=== PATIENT | male | born 1960 | race Caucasian/White ===

== ENCOUNTER 2016-03-24 00:01 | Outpatient (POV) ==
[2015-06-21 03:00] VITALS: BMI 43.2
== END 2016-03-24 00:02 ==
LOC: OUTPT 00:01
PROVIDERS: ATTEND Otolaryngology
DX: H91.90 Unspecified hearing loss, unspecified ear (principal)
CPT/HCPCS: 92557; 92567

== ENCOUNTER 2016-06-01 13:51 | Outpatient (CLI) ==
[2015-06-21 03:00] VITALS: BMI 43.2
--- NOTE | 2016-06-01 15:25 | DI ---
Exam: Right hip two views History: Right hip pain Findings: AP and frog lateral views of the right hip were obtained and demonstrates degenerative sp urring and soft tissue calcifications in relationship to the superior lateral right acetabular rim. There is also degenerative spurring and soft tissue calcifications in relationship to the greater t rochanter. No evidence of fracture, dislocation nor evidence of hip joint space narrowing noted. IMPRESSION: Arthritic changes in relationship to the acetabular rim and right greater trochanter wi thout evidence of fracture nor disruption of the right hip joint space and articulation.
--- NOTE | 2016-06-01 15:27 | DI ---
Exam: Lumbar spine three-view AP and lateral study History: Pain Findings: Full length AP and lateral views of the lumbar spine were obtained as well as a spot late ral view of the lumbosacral angle. There appear to be five non-rib bearing, non sacralized lumbar v ertebrae. Heights of the lumbar vertebrae and associated disc spaces appear to be relatively intact . There is a mild degree of multilevel endplate spurring noted throughout the bulk of the lumbar sp ine. Impression: Very mild degree of multilevel endplate spurring. No evidence of fracture, malalignmen t nor significant lumbar spine compression deformity in this patient with five functioning, non-rib bearing, non sacralized lumbar vertebrae.
== END 2016-06-01 13:52 | disposition home or self-care (01) ==
LOC: RAD 13:51
PROVIDERS: ATTEND Internal Medicine
DX: M25.551 Pain in right hip (principal); M54.9 Dorsalgia, unspecified

== ENCOUNTER 2016-06-11 10:01 | Outpatient (CLI) ==
[2015-06-21 03:00] VITALS: BMI 43.2
--- NOTE | 2016-06-11 11:07 | CT ---
EXAM: CT of the right lower extremity without contrast History: Right hip pain. Comparison: Right hip radiograph 06/01/2016 Technique: Multiplanar CT images through the right hip were obtained without the administration of IV contrast Findings: No acute fracture or dislocation. Mild enthesiopathy of the greater trochanter. Mild narrowing of the right hip joint. Increased acetabular coverage of the right femoral head. Osseous density seen involving the superior acetabular rim may be related to old trauma or accessory ossicle. Impression: 1. No acute osseous abnormality. 2. Mild arthritis of the right hip joint. 3. Increased acetabular coverage of the right femoral head can predispose to femoral acetabular imp ingement syndrome. If symptoms persist, recommend further evaluation with MRI.
--- NOTE | 2016-06-11 11:24 | CT ---
EXAM: CT of the lumbar spine without contrast History: Lower back pain. Comparison: Lumbar spine radiograph 06/01/2016 Technique: Multiplanar CT images through the lumbar spine were obtained without the administration of IV contrast Findings: Mild atherosclerotic vascular calcifications of the visualized abdominal aorta. No acute fracture or subluxation. Mild multilevel degenerative disc space narrowing with a few smal l anterior osteophytes. T12-L1: A small posterior disc osteophyte complex with no significant bony central canal stenosis an d no bony neural foraminal narrowing. L1-L2: No significant disc bulge, central canal stenosis or bony neural foraminal narrowing. L2-L3: No significant disc bulge, central canal stenosis or bony neural foraminal narrowing. L3-L4: No significant disc bulge or central canal stenosis. Moderate left and mild to moderate rig ht bony neural foraminal narrowing secondary to ligamentous and facet perching. L4-L5: Small disc bulge effacing the anterior thecal sac but no significant bony central canal sten osis. Moderate left and mild to moderate right bony neural foraminal narrowing secondary to ligament ous and facet hypertrophy. L5, S1: No significant disc bulge or central canal stenosis. Mild to moderate bilateral bony neural foraminal narrowing secondary to ligamentous and facet hypertrophy. Impression: 1. No acute osseous abnormality of the lumbar spine. 2. Level by level analysis as detailed above.
== END 2016-06-11 10:02 | disposition home or self-care (01) ==
LOC: RAD 10:01
PROVIDERS: ATTEND Internal Medicine
DX: M25.551 Pain in right hip (principal); M54.5 Low back pain

== ENCOUNTER 2017-04-14 07:44 | Outpatient (CLI) ==
[2015-06-21 03:00] VITALS: BMI 43.2
== END 2017-04-14 07:45 | disposition home or self-care (01) ==
LOC: LAB 07:44
PROVIDERS: ATTEND Internal Medicine Endocrinology, Diabetes & Metabolism
DX: E88.81 Metabolic syndrome and other insulin resistance (principal)
CPT/HCPCS: 36415; 82533

== ENCOUNTER 2017-10-27 06:40 | Outpatient (CLI) ==
[2015-06-21 03:00] VITALS: BMI 43.2
--- NOTE | 2017-10-28 08:56 | ECHOCOLOR ---
Date of Exam: 10/27/17 Ordering Physician: DR. MEGAN GARCIA Reason for Echo: SOB, CAD WITH STENT, MORBID OBESITY M-Mode Normal Adult Results LV Dimensions Normal Adult Results AoV Opening excursions >1.6 >1.6 LVEDD-base- 3.5-5.8 6.1 Ao root dimensions 2.0-3.7 4.1 LVESD-base- 3.1-4.6 L. Atrium dimensions 1.9-3.8 4.8 Post. Wall thickness 0.8-1.1 1.2 IV septum (thickness) 0.7-1.2 1.5 Post. Wall excursion 0.72-1.3 NORMAL Septal motion 0.5 Systolic motion R. Ventricular cavity 1.5-2.0 NORMAL LVEF 60% 57% Paradoxical septal wall motion NORMAL 2-D: DILATED LEFT ATRIAL AND LEFT VENTRICLE CAVITIES--NORMAL VALVES--NO EFFUSION , NO THROMBUS, HYPOKINETIC SEPTUM M-MODE: MV: NORMAL AV: NORMAL TV: NORMAL PV: CHAMBER SIZE: ENLARGED LEFT ATRIAL AND LEFT VENTRICLE CAVITIES WALL MOTION: HYPOKINETIC SEPTUM PERICARDIUM: NORMAL INTERPRETATION: 1. LEFT VENTRICULAR HYPERTROPHY WITH ENLARGED LEFT ATRIAL CAVITY (4.8 CM) 2. HYPOKINETIC SEPTAL WALL 3. LEFT VENTRICULAR EJECTION FRACTION 57% 4. DILATED TO AORTIC ROOT MTDD
== END 2017-10-27 06:41 | disposition home or self-care (01) ==
LOC: CAR 06:40
PROVIDERS: ATTEND Internal Medicine
DX: R06.02 Shortness of breath (principal); I25.10 Atherosclerotic heart disease of native coronary artery without angina pectoris

== ENCOUNTER 2017-10-28 06:46 | Outpatient (CLI) ==
[2015-06-21 03:00] VITALS: BMI 43.2
[2017-10-28] MEDS ORDERED: DOBUTAMINE 250 ML IV ONE (07:08)
[2017-10-28] MEDS ORDERED: ATROPINE SULFATE PFS ONE (07:09)
== END 2017-10-28 06:47 | disposition home or self-care (01) ==
LOC: CAR 06:46
PROVIDERS: ATTEND Internal Medicine
DX: R06.02 Shortness of breath (principal); I25.10 Atherosclerotic heart disease of native coronary artery without angina pectoris; Z95.5 Presence of coronary angioplasty implant and graft

== ENCOUNTER 2020-09-23 21:30 | Observation (INO) ==
[2020-09-23 22:10] LABS: BASOPHILS # (AUTO) 0.1 K/uL (0-0.2); BASOPHILS % (AUTO) 0.8 % (0.0-3.0); EOSINOPHILS # (AUTO) 0.4 K/ul (0.0-0.7); EOSINOPHILS % (AUTO) 3.9 % (0.0-7.0); HEMATOCRIT 46.6 % (42.0-52.0); HEMOGLOBIN 15.5 g/dl (14.0-18.0); IMMATURE GRANULOCYTE % (AUTO) 0.2 % (0.0-5.0); LYMPHOCYTES # (AUTO) 2.4 K/uL (0.60-3.4); LYMPHOCYTES % (AUTO) 26.1 (10.0-50.0); MEAN CORPUSCULAR HEMOGLOBIN 27.3 pg (27.0-31.0); MEAN CORPUSCULAR HGB CONC 33.3 (31.8-35.4); MEAN CORPUSCULAR VOLUME 82.2 fl (80.0-94.0); MONOCYTES # (AUTO) 0.6 K/uL (0.4-2.0); MONOCYTES % (AUTO) 6.3 (0-10); NEUTROPHILS # (AUTO) 5.8 K/ul (2.0-6.9); NEUTROPHILS % (AUTO) 62.7 % (42.2-75.2); PLATELET COUNT 246 10^3/uL (140-440); RDW COEFFICIENT OF VARIATION 14.7 % (11.6-14.8); RED BLOOD COUNT 5.67 10^6/ul (4.70-6.10); WHITE BLOOD COUNT 9.21 K/ul (4.2-10.2)
--- NOTE | 2020-09-23 22:18 | DI ---
Exam: Two-view chest x-ray. Date: 09/23/2020. Comparison: None. HISTORY: Double vision. FINDINGS: Change of a sternotomy are present. The lungs are clear. There is mild elevation of the right hemidiaphragm. The cardiac silhouette and pulmonary vasculature are are normal. Impression: No acute intrathoracic findings. Sternotomy.
--- NOTE | 2020-09-23 22:44 | ED.PDOC ---
General ED Provider: Dr. SUMANTH CARRIZALES-ER Chief Complaint: Dizziness Stated Complaint: i have had double vision for several days Time Seen by Provider: 09/23/20 22:45 Mode of Arrival: Walk-In Information Source: Patient Primary Care Provider: MEGAN GARCIA Nursing and Triage Documentation Reviewed and Agree: Yes Does patient meet sepsis criteria?: No System Inflammatory Response Syndrome: Not Applicable Sepsis Protocol: For patient's 13 years and over: Temp is 96.8 and below OR 101 and greater Pulse >90 BPM Resp >20/minute Acutely Altered Mental Status Are patient's symptoms suggestive of a new infection, such as: -Pneumonia -Skin, Soft Tissue -Endocarditis -UTI -Bone, Joint Infection -Implantable Device -Acute Abdominal Infection -Wound Infection -Meningitis -Blood Stream Catheter Infection -Unknown Neurological Complaint Exam Neurological Deficit Complaint/Exam Patient Complains of: Reports Abnormal sensation Symptom Onset Unknown: No Onset: Gradual Symptoms Are: Still present Timing: Intermittent Initial Severity: Mild Current Severity: Moderate Location: Reports Generalized Character: Denies Numbness, Tingling, Paresthesia, Motor weakness, Paralysis, Sensory loss and Impaired speech Aggravating: Denies None, Fatigue, Stress, Hypertension and Exertion Alleviating: Denies None, Rest, OTC Meds, Heat and Ice Associated Signs and Symptoms: Denies Confusion, Agitation, Responsiveness, LOC, Headache, Fever, Nuchal rigidity, Recent trauma, Remote trauma and Recent il lness Related History: Denies Similar episode and Anticoagulant therapy CVA Risk Factors: Reports Diabetes SDH Risk Factors: Reports Male Carotid Bruit Present: No Glascow Coma Scale (see protocol): 15 Meningeal Signs Positive: No Focal Weakness: Present None Focal Sensory Loss: Present None Gait: Normal Nystagmus Present: No Gag Reflex Present: Yes Romberg Test Positive: No Babinski Sign: Negative Right and Negative Left Heel to Toe Normal: No Signs of Trauma: No IV t-PA Prescribed: No Differential Diagnoses: CVA Quality Indicator For Non-Traumatic Chest Pain/Syncope: EKG Performed Review of Systems Review Of Systems Constitutional: Reports No symptoms Eyes: Reports No symptoms Ears, Nose, Mouth, Throat: Reports No symptoms Respiratory: Reports No symptoms Cardiac: Reports No symptoms GI: Reports No symptoms : Reports No symptoms Musculoskeletal: Reports No symptoms Skin: Reports No symptoms Neurological: Reports Numbness Endocrine: Reports No symptoms Hematologic/Lymphatic: Reports No symptoms All Other Systems: Reviewed and Negative Physical Exam Physical Exam Appearance: Reports Well-appearing Ill-appearing: Not Applicable Pain Distress: Not Applicable Eyes: Reports LEON, EOMI and Conjunctiva clear ENT: Reports Ears normal Neck: Supple Respiratory: Reports Airway patent, Breath sounds clear and Breath sounds equal Cardiovascular: Reports RRR, Pulses normal, No rub and No murmur GI/: Reports Soft, Nontender, No masses, Bowel sounds normal and No Organomeg rere Musculoskeletal: Reports Normal strength, ROM intact, No edema and No calf tenderness Skin: Reports Warm, Dry and Normal color Neurological: Reports Sensation intact, Motor intact, Reflexes intact, Cranial nerves intact, Alert and Oriented Psychiatric: Reports Affect appropriate and Mood appropriate Critical Care Note Critical Care Note Total Critical Care Time (mins): 0 Course Course Hematology/Chemistry: 09/23/20 22:04 09/23/20 22:04 Orders, Labs, Meds: Lab Review 09/23/20 09/23/20 22:04 22:04 WBC 9.21 RBC 5.67 Hgb 15.5 Hct 46.6 MCV 82.2 MCH 27.3 MCHC 33.3 RDW Coeff of Chey 14.7 Plt Count 246 Immature Gran % (Auto) 0.2 Neut % (Auto) 62.7 Lymph % (Auto) 26.1 Dickinson % (Auto) 6.3 Eos % (Auto) 3.9 Baso % (Auto) 0.8 Neut # (Auto) 5.8 Lymph # (Auto) 2.4 Dickinson # (Auto) 0.6 Eos # (Auto) 0.4 Baso # (Auto) 0.1 Immature Gran # (Auto) 0.0 ESR 2 Sodium 137.0 Potassium 4.50 Chloride 102.0 Carbon Dioxide 20.0 L Anion Gap 19.50 BUN 26.0 H Creatinine 1.20 H Estimated GFR (MDRD) 62.00 BUN/Creatinine Ratio 21.66 Glucose 165.0 H Calcium 8.90 Total Bilirubin 0.40 AST 32.0 ALT 34.0 Alkaline Phosphatase 82.0 Total Creatine Kinase 80.0 Troponin I Pending Total Protein 7.50 Albumin 4.30 Globulin 3.20 Albumin/Globulin Ratio 1.34 Orders Category Date Time Status EKG-(ED ONLY) Stat CARDIO 09/23/20 21:47 Completed ED CATERING COORDINATOR APPLIED .ONCE EMERGENCY 09/23/20 21:47 Active ED IV/MEDIPORT/POWERPORT .ONCE EMERGENCY 09/23/20 21:47 Active CBC W/ AUTO DIFF Stat LAB 09/23/20 22:04 Completed COMPREHENSIVE METABOLIC PANEL Stat LAB 09/23/20 22:04 Results CREATINE KINASE Stat LAB 09/23/20 22:04 Results ESR Stat LAB 09/23/20 22:04 Completed HEMOGLOBIN A1C Stat LAB 09/23/20 22:04 Received TROPONIN I Stat LAB 09/23/20 22:04 Results 0.9 % Sodium Chloride [Saline Flush] MEDS 09/23/20 21:47 Active 1 syr IVF PRN PRN CHEST, 2 VIEWS PA & LAT Stat RADS 09/23/20 21:48 Completed Medications Generic Name Dose Route Start Last Admin Trade Name Freq PRN Reason Stop Dose Admin Sodium Chloride 1 syr 09/23/20 21:47 0.9% Sodium Chloride 10 Ml Disp.Syrin IVF PRN PRN To flush IV Vital Signs: Temp Pulse Resp BP Pulse Ox 09/23/20 21:32 98.1 F 100 H 20 148/89 H 94 L Discharge Plan Discharge Patient Disposition: PLACED OBSERVATION Discharge Problem: Diplopia Prescriptions: No Action atorvastatin [Lipitor] 20 MG tablet 20 mg PO QPM RF: 0 diltiazem HCl 180 MG capsule,extended release 24hr 180 mg PO DAILY RF: 0 magnesium oxide 400 MG tablet 400 mg PO DAILY RF: 0 metformin [Glucophage] 1,000 MG tablet 1,000 mg PO BID RF: 0 lisinopril [Zestril] 5 MG tablet 5 mg PO DAILY RF: 0 multivitamin 1 CAP capsule 1 cap PO DAILY RF: 0 pantoprazole 40 mg Tablet,Delayed Release (Dr/Ec) 40 mg PO DAILY RF: 0 tamsulosin 0.4 mg Capsule 0.4 mg PO BEDTIME RF: 0 Humalog U-100 Insulin 100 unit/mL Cartridge 80 unit SUBCUT BID RF: 0 Jardiance 25 mg Tablet 25 mg PO DAILY RF: 0 aspirin 325 mg Tablet 325 mg PO BEDTIME RF: 0 sennosides [Senokot] 8.6 mg Tablet 17.2 mg PO BEDTIME RF: 0 cetirizine [Zyrtec] 10 mg Tablet 10 mg PO QPM RF: 0 glucosamine-chondroitin [Osteo Bi-Flex] 250-200 mg Tablet 2 tab PO QAM RF: 0 coQ10 (ubiquinol) 200 mg Capsule 400 mg PO QPM RF: 0 acetaminophen [Tylenol] 325 mg Tablet 650 mg PO BID RF: 0 tramadol 50 mg Tablet 50 mg PO BID RF: 0 naproxen sodium 220 mg Tablet 440 mg PO BID RF: 0 furosemide [Lasix] 20 mg Tablet 20 mg PO DAILY RF: 0 gabapentin 100 mg Capsule 200 mg PO BEDTIME RF: 0 Humalog U-100 Insulin 100 unit/mL Cartridge 70 unit SUBCUT BEDTIME RF: 0 Fish Oil 1,000 mg Capsule 1 cap PO TID RF: 0 Ozempic 0.25 mg or 0.5 mg(2 mg/1.5 mL) Pen Injector 0.5 mg SUBCUT WEEKLY RF: 0 ED Provider: SUMANTH BAZZI Condition: Good Physician Progress Note: []
[2020-09-23 23:07] LABS: ERYTHROCYTE SEDIMENTATION RATE 2 mm/hr (0-15)
[2020-09-23] MEDS ORDERED: SODIUM CHLORIDE 1,000 ML IV STA (23:20)
[2020-09-23] MEDS ORDERED: PSYLLIUM PO SCH (23:30)
[2020-09-24] LABS: BORDETELLA PARAPERTUSSIS (PCR) NOT DETECTED (NOT DETECT); BORDETELLA PERTUSSIS (PCR) NOT DETECTED (NOT DETECT); CHLAMYDIA PNEUMONIAE (PCR) NOT DETECTED (NOT DETECT); CORONAVIRUS 229E (PCR) NOT DETECTED (NOT DETECT); CORONAVIRUS HKU1 (PCR) NOT DETECTED (NOT DETECT); CORONAVIRUS NL63 (PCR) NOT DETECTED (NOT DETECT); CORONAVIRUS OC43 (PCR) NOT DETECTED (NOT DETECT); HUMAN METAPNEUMOVIRUS (PCR) NOT DETECTED (NOT DETECT); HUMAN RHINOVIRUS/ENTEROV (PCR) NOT DETECTED (NOT DETECT); INFLUENZA B (PCR) NOT DETECTED (NOT DETECT); MYCOPLASMA PNEUMONIAE (PCR) NOT DETECTED (NOT DETECT); PARAINFLUENZA VIRUS 1 (PCR) NOT DETECTED (NOT DETECT); PARAINFLUENZA VIRUS 2 (PCR) NOT DETECTED (NOT DETECT); PARAINFLUENZA VIRUS 3 (PCR) NOT DETECTED (NOT DETECT); PARAINFLUENZA VIRUS 4 (PCR) NOT DETECTED (NOT DETECT); RESPIRATORY SYNCYTIAL V (PCR) NOT DETECTED (NOT DETECT); SARS_COV_2 (PCR) NOT DETECTED (NOT DETECT)
--- NOTE | 2020-09-24 00:18 | CT ---
EXAM: CT brain without and with contrast HISTORY: Diplopia TECHNIQUE: CT of the brain without and with intravenous contrast. FINDINGS: There is no acute hemorrhage midline shift or mass effect. No hydrocephalus or abnormal e xtra-axial fluid collection. Generalized involutional atrophy, mild. Chronic microvascular change o f the white matter tracts, mild. No acute large vessel territorial infarct is seen. Atherosclerotic vascular calcifications. Postcontrast shows no abnormal enhancement. Dural venous sinuses enhancing as expected. The bony cranium appears normal. The visualized paranasal sinuses are clear. Soft tis sues without significant abnormality. IMPRESSION: 1. No acute intracranial abnormality All CT scans are performed using dose optimization techniques as appropriate to the performed exam an d include at least one of the following: Automated exposure control, adjustment of the mA and/or kV according t o size, and the use of iterative reconstruction technique.
[2020-09-24 00:44] LABS: ADENOVIRUS (PCR) NOT DETECTED (NOT DETECT)
[2020-09-24 02:05] VITALS: BMI 41.8
[2020-09-24 05:29] LABS: BASOPHILS # (AUTO) 0.1 K/uL (0-0.2); BASOPHILS % (AUTO) 1.1 % (0.0-3.0); EOSINOPHILS # (AUTO) 0.3 K/ul (0.0-0.7); HEMATOCRIT 43.2 % (42.0-52.0); HEMOGLOBIN 13.7 g/dl (14.0-18.0); IMMATURE GRANULOCYTE % (AUTO) 0.4 % (0.0-5.0); LYMPHOCYTES # (AUTO) 2.5 K/uL (0.60-3.4); LYMPHOCYTES % (AUTO) 33.7 (10.0-50.0); MEAN CORPUSCULAR HEMOGLOBIN 26.8 pg (27.0-31.0); MEAN CORPUSCULAR HGB CONC 31.7 (31.8-35.4); MEAN CORPUSCULAR VOLUME 84.5 fl (80.0-94.0); MONOCYTES # (AUTO) 0.5 K/uL (0.4-2.0); MONOCYTES % (AUTO) 7.4 (0-10); NEUTROPHILS # (AUTO) 3.9 K/ul (2.0-6.9); NEUTROPHILS % (AUTO) 53.4 % (42.2-75.2); PLATELET COUNT 218 10^3/uL (140-440); RDW COEFFICIENT OF VARIATION 15.2 % (11.6-14.8); RED BLOOD COUNT 5.11 10^6/ul (4.70-6.10); WHITE BLOOD COUNT 7.34 K/ul (4.2-10.2)
[2020-09-24 05:42] LABS: ALANINE AMINOTRANSFERASE 29.5 U/L (0-50); ALBUMIN 3.96 g/dL (3.5-5.0); ALKALINE PHOSPHATASE 67.6 U/L (56-119); ASPARTATE AMINO TRANSFERASE 23.9 U/L (17-59); BILIRUBIN,TOTAL 0.32 mg/dL (0.2-1.3); BLOOD UREA NITROGEN 27.3 mg/dL (9-20); CALCIUM 8.89 mg/dL (8.4-10.2); CARBON DIOXIDE 23.8 mmol/L (22-30.0); CHLORIDE 103.2 mmol/L (98-107); CREATININE 1.17 mg/dL (0.60-1.10); GLUCOSE 218.9 mg/dL (74-106); POTASSIUM 4.36 mmol/L (3.5-5.1); SODIUM 135.5 mmol/L (134.5-145); TOTAL PROTEIN 6.63 g/dL (6.3-8.2)
[2020-09-24] MEDS ORDERED: METAMUCIL PO SCH (07:30)
[2020-09-24] MEDS ORDERED: HUMALOG SUBCUT SCH ×2 (09:00→21:00)
[2020-09-24] MEDS ORDERED: NAPROXEN SODIUM 220 MG PO SCH (09:00)
[2020-09-24] MEDS: TYLENOL PO SCH ×2 (09:22→20:39)
[2020-09-24] MEDS: CARDIZEM CD PO SCH (09:22)
[2020-09-24] MEDS: MAG-OX PO SCH (09:22)
[2020-09-24] MEDS: LASIX TAB PO SCH (09:22)
[2020-09-24] MEDS: PROTONIX PO SCH (09:22)
[2020-09-24] MEDS: ZESTRIL PO SCH (09:22)
[2020-09-24] MEDS: ULTRAM PO SCH ×2 (09:23→20:39)
[2020-09-24] MEDS: NON-FORMULARY MEDICATION (Insulin Regular Hum U-500 Conc [Humulin R U-500 (Conc) Kwikpen] SUBCUT SCH ×3 (09:46→17:36)
[2020-09-24 10:43] LABS: TROPONIN I < 0.012 ng/ml (0.0000-0.120)
[2020-09-24] MEDS ORDERED: XANAX PO ONE ×2 (11:28→12:57)
--- NOTE | 2020-09-24 15:24 | MRI ---
EXAMINATION: MAGNETIC RESONANCE IMAGING (MRI) OF THE BRAIN WITH AND WITHOUT CONTRAST HISTORY: Diplopia TECHNIQUE: Multiplanar multi-weighted MRI of the brain and brainstem was performed with and without i ntravenous contrast using the general brain protocol. Contrast: 15 mL of Dotarem COMPARISON: CT head 09/23/2020 FINDINGS: Acute Change: No acute infarct. No acute hemorrhage. Chronic Change: Scattered foci of T2/FLAIR hyperintensity in the periventricular and subcortical whit e matter, which are nonspecific, however likely represent mild chronic microvascular ischemia. No re mote microhemorrhages. Mild generalized parenchymal volume loss. Parenchyma: No intracranial lesion. No mass effect or midline shift. Craniocervical junction is nor mal. Ventricles/Extra-axial Spaces: Ventricles are normal in size and morphology for age. Normal basal ci sterns. Sella/Skull Base: Pituitary and sella are normal. Paranasal Sinuses/Mastoids: Mild ethmoid sinus mucosal thickening. Mastoid air cells are clear. Orbits: Normal. Vasculature: Normal flow voids in the carotid arteries and basilar artery. Calvarium/Scalp: Normal marrow. No soft tissue swelling. Limited Cervical Spine: No significant abnormality. IMPRESSION: No acute intracranial abnormality. No MR finding to explain the patient's symptoms.
--- NOTE | 2020-09-24 16:11 | US ---
EXAM: Carotid duplex ultrasound. HISTORY: Diplopia. COMPARISON: None. FINDINGS: Evaluation of the right and left carotid and vertebral arteries was performed using john scale, color doppler, and spectral doppler. Right cervical carotid: Moderate calcified atherosclerotic plaque in the right common and internal ca rotid artery. Peak systolic velocity right ICA 81.0cm/s. Velocity right CCA 72.9cm/s. Velocity rati o right ICA:CCA 1.1. Left cervical carotid: Moderate calcified atherosclerotic plaque in the left common and internal sloan tid artery. Peak systolic velocity left ICA 65.3cm/s. Velocity left CCA 90.4cm/s. Velocity ratio lef t ICA:CCA 0.7. Vertebral arteries: Normal, antegrade flow. IMPRESSION: No evidence of significant carotid stenosis. Moderate calcific atherosclerosis. Normal flow in the right and left vertebral arteries.
[2020-09-24] MEDS ORDERED: NON-FORMULARY MEDICATION (Insulin Regular Hum U-500 Conc [Humulin R U-500 (Conc) Kwikpen] SUBCUT SCH (17:00)
[2020-09-24] MEDS: LIPITOR PO SCH (17:36)
[2020-09-24] MEDS: METAMUCIL PO SCH (17:36)
[2020-09-24] MEDS: SENNA PO SCH (20:39)
[2020-09-24] MEDS: ASPIRIN EC PO SCH (20:39)
[2020-09-24] MEDS: FLOMAX PO SCH (20:39)
[2020-09-24] MEDS: HUMULIN R SUBCUT PRN (20:40)
[2020-09-24] MEDS ORDERED: NEURONTIN PO SCH (21:00)
[2020-09-25 05:08] LABS: BASOPHILS # (AUTO) 0.1 K/uL (0-0.2); BASOPHILS % (AUTO) 0.7 % (0.0-3.0); EOSINOPHILS # (AUTO) 0.3 K/ul (0.0-0.7); EOSINOPHILS % (AUTO) 4.3 % (0.0-7.0); HEMATOCRIT 46.3 % (42.0-52.0); HEMOGLOBIN 14.8 g/dl (14.0-18.0); IMMATURE GRANULOCYTE % (AUTO) 0.4 % (0.0-5.0); LYMPHOCYTES # (AUTO) 2.4 K/uL (0.60-3.4); LYMPHOCYTES % (AUTO) 32.5 (10.0-50.0); MEAN CORPUSCULAR HEMOGLOBIN 26.8 pg (27.0-31.0); MEAN CORPUSCULAR VOLUME 83.9 fl (80.0-94.0); MONOCYTES # (AUTO) 0.5 K/uL (0.4-2.0); MONOCYTES % (AUTO) 7.2 (0-10); NEUTROPHILS # (AUTO) 4.1 K/ul (2.0-6.9); NEUTROPHILS % (AUTO) 54.9 % (42.2-75.2); PLATELET COUNT 225 10^3/uL (140-440); RED BLOOD COUNT 5.52 10^6/ul (4.70-6.10); WHITE BLOOD COUNT 7.51 K/ul (4.2-10.2)
[2020-09-25] MEDS: SODIUM CHLORIDE 1,000 ML IV SCH ×2 (05:09→13:12)
[2020-09-25 05:25] LABS: ALANINE AMINOTRANSFERASE 33.1 U/L (0-50); ALBUMIN 4.2 g/dL (3.5-5.0); ALKALINE PHOSPHATASE 59.7 U/L (56-119); ASPARTATE AMINO TRANSFERASE 25.5 U/L (17-59); BILIRUBIN,TOTAL 0.44 mg/dL (0.2-1.3); BLOOD UREA NITROGEN 21.8 mg/dL (9-20); CALCIUM 9.14 mg/dL (8.4-10.2); CARBON DIOXIDE 27.1 mmol/L (22-30.0); CHLORIDE 102.9 mmol/L (98-107); CREATININE 1.14 mg/dL (0.60-1.10); GLUCOSE 121.1 mg/dL (74-106); POTASSIUM 4.21 mmol/L (3.5-5.1); SODIUM 137.7 mmol/L (134.5-145); TOTAL PROTEIN 6.96 g/dL (6.3-8.2)
[2020-09-25] MEDS: PROTONIX PO SCH (05:44)
[2020-09-25] MEDS: LASIX TAB PO SCH (05:44)
[2020-09-25] MEDS ORDERED: FIORICET PO ONE (08:41)
[2020-09-25] MEDS: NON-FORMULARY MEDICATION (Insulin Regular Hum U-500 Conc [Humulin R U-500 (Conc) Kwikpen] SUBCUT SCH ×3 (09:53→16:59)
[2020-09-25] MEDS: ZESTRIL PO SCH (09:54)
[2020-09-25] MEDS: ULTRAM PO SCH ×2 (09:54→20:23)
[2020-09-25] MEDS: MAG-OX PO SCH (09:54)
[2020-09-25] MEDS: TYLENOL PO SCH ×2 (09:54→20:23)
[2020-09-25] MEDS: CARDIZEM CD PO SCH (09:54)
[2020-09-25] MEDS: JARDIANCE PO SCH (09:55)
[2020-09-25] MEDS: FIORICET PO PRN ×2 (10:03→17:00)
--- NOTE | 2020-09-25 10:34 | PCM.PROG ---
Attending Provider: ATTENDING PROVIDER: Dr. MEGAN GARCIA This patient is seen with Stacy Hernández, Nurse Practitioner. DATE OF SERVICE: 09/25/20 SUBJECTIVE: This 59 year old /WHITE M was hospitalized 09/24/20. The patient is resting comfortably in bed. He is complaining of double vision then experiences headache, not constant, has been happening off and on for past few days, History of headaches not migraines. CT, MRI and carotids all normal. He does have photosensitivity. No nausea or vomiting. REVIEW OF SYSTEMS: CONSTITUTIONAL: No night sweats. No fatigue, malaise, lethargy. No fever or chills. HEENT: Eyes: Visual disturbance. No eye pain. No eye discharge. ENT: No runny nose. No epistaxis. No sinus pain. No odynophagia. No congestion. RESPIRATORY: No cough, no congestion. No hemoptysis. No shortness of breath. CARDIOVASCULAR: No angina symptoms. No CHF symptoms. No atypical chest pain for CAD. No palpitations. No orthopnea.. GASTROINTESTINAL: No abdominal pain. No nausea or vomiting. No diarrhea or constipation. No hematemesis. No hematochezia. GENITOURINARY: No urgency. No frequency. No dysuria. No hematuria. No obstructive symptoms. No discharge. No pain. No significant abnormal bleeding. MUSCULOSKELETAL: No musculoskeletal pain; no joint swelling. NEUROLOGICAL: Headache. Visual disturbance. Awake, alert, oriented to time, place and person. No neck pain. No syncope. No seizures. No dizziness. PSYCHIATRIC: Not anxious. No depression. No suicidal thoughts. No homicidal thoughts. SKIN: No rash. No lesions. No wounds. ENDOCRINE: No unexplained weight loss. No weight gain. HEMATOLOGIC/LYMPHATIC: No anemia. No purpura. No petechiae. No prolonged or excessive bleeding. No palpable lymph nodes. PHYSICAL EXAMINATION: GENERAL: The patient is awake, alert and oriented, lying/sitting in bed in no distress. VITAL SIGNS: Temperature 97.2 F, Pulse 76, Respiratory Rate 18, BP 132/91, Pulse Ox 95% HEENT: Head normocephalic, atraumatic. Eyes: Extraocular muscles are intact. Pupils are equal, round and reactive to light and accommodation. Ears: No lesions. Nose appeared normal. Throat: No exudate or erythema. NECK: Supple. No JVD, no carotid bruit. No lymphadenopathy or thyromegaly. LUNGS: Clear to auscultation. Percussion note normal. Chest symmetrical. HEART: S1, S2, no S3. No murmurs. No cyanosis or clubbing. No ascites. Pulses: Dorsalis pedis and posterior tibial pulses +1 to +2 both sides. ABDOMEN: Soft. Non-tender. Bowel sounds active. No CVA tenderness. No mass felt. EXTREMITIES: No edema. Full range of motion of all extremities, equal. NEUROLOGIC: No focal deficit. Cranial nerves II through XII are grossly intact. No headache. No double vision. SKIN: Not dry. Intact. Turgor-normal. LYMPHATIC: No palpable lymph nodes/no lymphedema. MUSCULOSKELETAL: Normal joints with no swelling. Muscle tone is normal. LAB REVIEW: 09/25/20 04:47 09/25/20 04:47 09/25/20 04:47: Sodium 137.7, Potassium 4.21, Chloride 102.9, Carbon Dioxide 27.1, Anion Gap 11.91, BUN 21.8 H, Creatinine 1.14 H, Estimated GFR (MDRD) 6 5.00, BUN/Creatinine Ratio 19.12, Glucose 121.1 H, Calcium 9.14, Total Bilirubin 0.44, AST 25.5, ALT 33.1, Alkaline Phosphatase 59.7, Total Protein 6.96, Albumin 4.20, Globulin 2.76, Albumin/Globulin Ratio 1.52 09/25/20 04:47: WBC 7.51, RBC 5.52, Hgb 14.8, Hct 46.3, MCV 83.9, MCH 26.8 L, MCHC 32.0, RDW Coeff of Chey 15.0 H, Plt Count 225, Immature Gran % (Auto) 0.4, Neut % (Auto) 54.9, Lymph % (Auto) 32.5, Riley % (Auto) 7.2, Eos % (Auto) 4.3, Baso % (Auto) 0.7, Neut # (Auto) 4.1, Lymph # (Auto) 2.4, Riley # (Auto) 0.5, Eos # (Auto) 0.3, Baso # (Auto) 0.1, Immature Gran # (Auto) 0.0 09/24/20 04:35: Thyroxine (T4) 7.1 09/24/20 04:35: TSH 2.000 09/23/20 22:04: Hemoglobin A1c 8.81 H 09/23/20 22:04: Troponin I < 0.012 ASSESSMENT: Please see below. 1. Diplopia. 2. Headache likely migraine with aura. 3. Diabetes mellitus type 2. 4. Chronic kidney disease, stage 2. PLAN: 1. Fioricet 1 to 2 q.6hr p.r.n. 2. Stop Gabapentin. 3. Restart Jardiance. 4. Refer to Neurology. Plan and coordination of the patient's care discussed in the presence of Parking Worker and nurse. CONDITION: Stable SCRIBED BY: ROMAN LEVI Chiropractic Neurologist scribed while in presence of service performed by Dr. Garcia/Stacy Hernández APRN on 09/25/20 ([id number])
[2020-09-25] MEDS: DECADRON IM SCH (12:46)
--- NOTE | 2020-09-25 13:53 | PN ---
DATE OF SERVICE: 09/24/20- ADMIT NOTE SUBJECTIVE: 59-year-old white male was hospitalized with diplopia. The patient was seen and examined in the room. The patient had more or less vertical diplopia which is absent when he is asked to close one eye. Diplopia comes and goes. Duration of diplopia the last few days. The patient's CT scan of the head a couple of days ago in the emergency room was negative. CT scan of the head with contrast was negative in the emergency room yesterday. REVIEW OF SYSTEMS: CONSTITUTIONAL: No night sweats. No fatigue, malaise, lethargy. No fever or chills. HEENT: Eyes: Diplopia. No eye pain. No eye discharge. ENT: No runny nose. No epistaxis. No sinus pain. No sore throat. No odynophagia. No congestion. RESPIRATORY: No cough, no congestion. No hemoptysis. No shortness of breath. CARDIOVASCULAR: No angina symptoms. No CHF symptoms. No atypical chest pain for CAD. No palpitations. No PND. No orthopnea. GASTROINTESTINAL: No abdominal pain. No nausea or vomiting. No diarrhea or constipation. No hematemesis. No hematochezia. GENITOURINARY: No urgency. No frequency. No dysuria. No hematuria. No obstructive symptoms. No discharge. No pain. No significant abnormal bleeding. MUSCULOSKELETAL: No musculoskeletal pain; no joint swelling. NEUROLOGICAL: No headache. No neck pain. No syncope. No seizures. No dizziness. PSYCHIATRIC: Not anxious. No depression. No suicidal thoughts. No homicidal thoughts. SKIN: No rash. No lesions. No wounds. ENDOCRINE: No unexplained weight loss. No weight gain. HEMATOLOGIC/LYMPHATIC: No anemia. No purpura. No petechiae. No prolonged or excessive bleeding. No palpable lymph nodes. PHYSICAL EXAMINATION: VITAL SIGNS: Temperature 97.3, pulse 70, respiratory rate 16, blood pressure 140/89, pulse ox 94%. HEENT: Head normocephalic, atraumatic. Eyes: Extraocular muscles are intact. Pupils are equal, round and reactive to light and accommodation. Ears: No lesions. Nose appeared normal. Throat: No exudate or erythema. NECK: Supple. No JVD, no carotid bruit. No lymphadenopathy or thyromegaly. LUNGS: Clear to auscultation. Percussion note normal. Chest symmetrical. HEART: S1, S2, no S3. No murmurs. No cyanosis or clubbing. No ascites. Pulses: Dorsalis pedis and posterior tibial pulses +1 to +2 bilaterally. ABDOMEN: Soft. Nontender. Bowel sounds active. No CVA tenderness. No mass felt. EXTREMITIES: No edema. Full range of motion of all extremities, equal. NEUROLOGIC: No focal deficit. Cranial nerves II through XII are grossly intact. No headache. No double vision. SKIN: Not dry. Intact. Turgor - normal. LYMPHATIC: No palpable lymph nodes/no lymphedema. MUSCULOSKELETAL: Normal joints with no swelling. Muscle tone is normal. LABS/IMAGING: Hemoglobin 13.7, hematocrit 43, WBC 7,300, normal differential. Creatinine 1.2, BUN 26, potassium 4.5. MRI with contrast done today negative. Carotid and vertebral scans negative. ASSESSMENT: 1. Diplopia likely cause diabetes mellitus. 2. Morbid obesity with BMI of 42. 3. Dyslipidemia on Atorvastatin. 4. Hypertension on diltiazem, Lisinopril. 5. Diabetes mellitus on insulin. 6. BPH on Flomax. 7. Generalized osteoarthritis on Tramadol. 8. Reflux disease on Pantoprazole. PLAN: 1. Check neurochecks q.2hr. 2. Telemetry. 3. Carotid scan and MRI with contrast, all negative. 4. Will refer the patient to internal audit senior manager. 5. The patient will have T4, TSH done and sed rate. TIME SPENT: More than 30 minutes. Plan and coordination of the patient's care discussed in the presence of nurse. VARINDER
[2020-09-25] MEDS: LIPITOR PO SCH (17:00)
[2020-09-25] MEDS: METAMUCIL PO SCH (17:00)
[2020-09-25] MEDS: HUMULIN R SUBCUT PRN (20:22)
[2020-09-25] MEDS: SENNA PO SCH (20:23)
[2020-09-25] MEDS: FLOMAX PO SCH (20:24)
[2020-09-25] MEDS: ASPIRIN EC PO SCH (20:24)
[2020-09-26 05:14] LABS: BASOPHILS % (AUTO) 0.4 % (0.0-3.0); EOSINOPHILS # (AUTO) 0.1 K/ul (0.0-0.7); EOSINOPHILS % (AUTO) 0.7 % (0.0-7.0); HEMOGLOBIN 15.3 g/dl (14.0-18.0); IMMATURE GRANULOCYTE % (AUTO) 0.4 % (0.0-5.0); LYMPHOCYTES # (AUTO) 1.4 K/uL (0.60-3.4); LYMPHOCYTES % (AUTO) 12.7 (10.0-50.0); MEAN CORPUSCULAR HEMOGLOBIN 27.4 pg (27.0-31.0); MEAN CORPUSCULAR HGB CONC 33.3 (31.8-35.4); MEAN CORPUSCULAR VOLUME 82.3 fl (80.0-94.0); MONOCYTES # (AUTO) 0.6 K/uL (0.4-2.0); MONOCYTES % (AUTO) 5.7 (0-10); NEUTROPHILS # (AUTO) 8.8 K/ul (2.0-6.9); NEUTROPHILS % (AUTO) 80.1 % (42.2-75.2); PLATELET COUNT 239 10^3/uL (140-440); RDW COEFFICIENT OF VARIATION 14.8 % (11.6-14.8); RED BLOOD COUNT 5.59 10^6/ul (4.70-6.10); WHITE BLOOD COUNT 10.98 K/ul (4.2-10.2)
[2020-09-26 05:28] LABS: ALANINE AMINOTRANSFERASE 33.9 U/L (0-50); ALBUMIN 4.4 g/dL (3.5-5.0); ALKALINE PHOSPHATASE 62.3 U/L (56-119); ASPARTATE AMINO TRANSFERASE 26.1 U/L (17-59); BILIRUBIN,TOTAL 0.45 mg/dL (0.2-1.3); BLOOD UREA NITROGEN 19.9 mg/dL (9-20); CALCIUM 9.2 mg/dL (8.4-10.2); CARBON DIOXIDE 23.4 mmol/L (22-30.0); CHLORIDE 101.8 mmol/L (98-107); CREATININE 1.03 mg/dL (0.60-1.10); GLUCOSE 134.6 mg/dL (74-106); POTASSIUM 4.37 mmol/L (3.5-5.1); SODIUM 134.5 mmol/L (134.5-145); TOTAL PROTEIN 7.16 g/dL (6.3-8.2)
[2020-09-26] MEDS: LASIX TAB PO SCH (05:56)
[2020-09-26] MEDS: PROTONIX PO SCH (05:56)
[2020-09-26] MEDS: FIORICET PO PRN (05:57)
[2020-09-26] MEDS: MAG-OX PO SCH (09:13)
[2020-09-26] MEDS: CARDIZEM CD PO SCH (09:13)
[2020-09-26] MEDS: TYLENOL PO SCH (09:13)
[2020-09-26] MEDS: ULTRAM PO SCH (09:14)
[2020-09-26] MEDS: DECADRON IM SCH (09:14)
[2020-09-26] MEDS: ZESTRIL PO SCH (09:14)
[2020-09-26] MEDS: JARDIANCE PO SCH (09:14)
[2020-09-26] MEDS: NON-FORMULARY MEDICATION (Insulin Regular Hum U-500 Conc [Humulin R U-500 (Conc) Kwikpen] SUBCUT SCH ×2 (09:15→11:29)
--- NOTE | 2020-09-26 09:29 | HP ---
DATE OF SERVICE: 09/24/20 HISTORY OF PRESENT ILLNESS: This is a 59-year-old white male who presents to the emergency room complaining of dizziness. He states he had had double vision and headache along with some dizziness for the past several days. PAST MEDICAL HISTORY: Right fifth metatarsal transverse fracture Obstructive sleep apnea on CPAP History of MRSA with abscess in left axilla Diabetes mellitus type 2, last A1C was 8.8. He is followed by Dr. Santillan, Final Cleaner Dyslipidemia Morbid obesity Metabolic syndrome Polyarthritis of both knees Hypertension Coronary artery disease Low back pain PAST SURGICAL HISTORY: Coronary artery disease with stent 2007 and 2012 CABG in [address] [place] [address] Kendrick His second Covid vaccine was in June of [address] Santillan in July REVIEW OF SYSTEMS: CONSTITUTIONAL: No night sweats. No fatigue, malaise, lethargy. No fever or chills. HEENT: Eyes: Positive for visual disturbances, diplopia. No eye pain. No eye discharge. ENT: No runny nose. No epistaxis. No sinus pain. No sore throat. No odynophagia. No ear pain. No congestion. RESPIRATORY: No cough, no congestion. No hemoptysis. No shortness of breath. CARDIOVASCULAR: No angina symptoms. No CHF symptoms. No atypical chest pain for CAD. No palpitations. No PND. No orthopnea. GASTROINTESTINAL: No abdominal pain. No nausea or vomiting. No diarrhea or constipation. No hematemesis. No hematochezia. GENITOURINARY: No urgency. No frequency. No dysuria. No hematuria. No obstructive symptoms. No discharge. No pain. No significant abnormal bleeding. MUSCULOSKELETAL: No musculoskeletal pain. No joint swelling. No arthritis. NEUROLOGICAL: Headache, dizziness. Weakness. No neck pain. No syncope. No seizures. PSYCHIATRIC: Not anxious. No depression. No suicidal thoughts. No homicidal thoughts. SKIN: No rash. No lesions. No wounds. ENDOCRINE: No unexplained weight loss. No weight gain. HEMATOLOGIC/LYMPHATIC: No anemia. No purpura. No petechiae. No prolonged or excessive bleeding. No palpable lymph nodes. PERSONAL/FAMILY/SOCIAL HISTORY: He is . He lives at home with his . He is a former smoker. No alcohol or illicit drug use. MEDICATIONS: Magnesium Oxide 400 mg p.o. daily Multivitamin one p.o. daily Atorvastatin 20 mg p.o. q.p.m. Zestril 5 mg p.o. daily Diltiazem 180 mg p.o. daily Metformin 1,000 mg p.o. b.i.d. Jardiance 25 mg p.o. daily Zyrtec 10 mg p.o. q.p.m. Pantoprazole 40 mg p.o. daily Tamsulosin 0.4 mg p.o. bedtime Aspirin 325 mg p.o. bedtime Senokot 17.2 mg p.o. bedtime Glucosamine-Chondroitin two tab p.o. q.a.m. CoQ10 400 mg p.o. q.p.m. Lasix 20 mg p.o. daily Gabapentin 200 mg p.o. bedtime Tramadol 50 mg p.o. b.i.d. Naproxen 440 mg p.o. b.i.d. [place]-3 fatty acids-Vitamin E one cap p.o. t.i.d. Semaglutide (Ozempic) 0.5 mg subcut weekly Acetaminophen 650 mg p.o. b.i.d. Psyllium Powder one teaspoon p.o. as directed Insulin Regular Humulin 70 unit subcut as directed Insulin Regular 80 unit subcut b.i.d. breakfast and lunch ALLERGIES: CLINDAMYCIN, MILK, PENICILLINS, COTTAGE CHEESE, YOGURT, BEER, TOFU PHYSICAL EXAMINATION: GENERAL: The patient is alert, oriented. VITAL SIGNS: Temperature 98.1, heart rate 100, respirations 20, BP 148/89, pulse ox 94% on room air. HEENT: Head normocephalic, atraumatic. Eyes: Extraocular muscles are intact. Pupils are equal, round and reactive to light and accommodation. Ears: No lesions. Nose appeared normal. Throat: No exudate or erythema. NECK: Supple. No JVD, no carotid bruit. No lymphadenopathy or thyromegaly. LUNGS: Diminished breath sounds bilaterally. Clear to auscultation. Percussion note normal. Chest symmetrical. HEART: S1, S2, no S3. No murmur. No cyanosis or clubbing. No ascites. Pulses: Dorsalis pedis and posterior tibial pulses +1 to +2 bilaterally. ABDOMEN: Soft. Nontender. Bowel sounds active. No CVA tenderness. No mass felt. EXTREMITIES: No edema. Full range of motion of all extremities, equal. NEUROLOGIC: No focal deficit. Cranial nerves II through XII are grossly intact. No headache, no double vision or headache. SKIN: Not dry. Intact. Turgor - normal. LYMPHATIC: No palpable lymph nodes/no lymphedema. MUSCULOSKELETAL: Normal joints with no swelling. Muscle tone is normal. LABS/IMAGING: White count 9.21, hemoglobin 15.5, hematocrit 46.6, platelets 246. Sodium 137, potassium 4.5, BUN 26, creatinine 1.20, glucose 165. CT of the brain is normal. AST 32, ALT 34. Sed rate is 2. Carotid scan bilateral is also normal. A1C was 8.8. Respiratory panel by PCR is all negative. Chest x-ray normal. MRI of the brain with and without contrast is also normal. ASSESSMENT: 1. DIPLOPIA 2. HEADACHE 3. DIABETES MELLITUS TYPE 2 4. DYSLIPIDEMIA 5. HISTORY OF CORONARY ARTERY DISEASE PLAN: 1. We will admit to observation. 2. CBC, CMP daily. 3. Routine telemetry orders. 4. Continue home medications. 5. Hold Metformin due to IV contrast. 6. T4, TSH. 7. D/C Naproxen. 8. Will discontinue Neurontin as it was started only one month ago. 9. Will follow closely. TIME SPENT: More than 70 minutes. MTDD
[2020-09-26 10:44] VITALS: BP 127/80; TEMP 974
[2020-09-26] MEDS: HUMULIN R SUBCUT PRN (11:29)
--- NOTE | 2020-09-26 13:08 | CM.DICTOOL ---
ADMISSION: 09/24/20 01:25 DISCHARGE: SEPTEMBER 26, 2020 DATE OF SERVICE: 09/26/20 FINAL DIAGNOSIS DIPLOPIA HEADACHE DIABETES MELLITUS, TYPE 2 A1C 8.81(SEES DR. CLARK) NEUROPATHY HYPERTENSION CKD 2 DYSLIPIDEMIA GERD CAD BPH HISTORY OF MRSA LEFT AXILLARY ABSCESS MORBID OBESITY, BMI 42 METABOLIC SYNDROME OBSTRUCTIVE SLEEP APNEA (C-PAP) RIGHT FIFTH METATARSAL TRANSVERE FRACTURE CABG, 2012 CARDIAC STENT, 2008 AND 2012 HERNIA REPAIR, CHILDHOOD LAST VITALS Temp Pulse Resp BP Pulse Ox 974 F H 79 20 127/80 93 L 09/26/20 10:00 09/26/20 10:00 09/26/20 10:00 09/26/20 10:00 09/26/20 10:00 TAKE THESE MEDICATIONS AT HOME Acetaminophen (Acetaminophen 325 Mg Tablet) 650 mg PO BID [facility] Last Admin: 09/26/20 09:13 Dose: 650 mg Documented by: Acetaminophen/Butalbital/Caffeine (Butalb/Acetaminophen/Caffeine 50/325/40 Mg Tablet) 1 - 2 TABLETS BID PRN (NEW RX) PRN Reason: Mild Pain Last Admin: 09/26/20 05:57 Dose: 2 each Documented by: Aspirin (Aspirin 325 Mg Tablet.) 325 mg PO BEDTIME [facility] Last Admin: 09/25/20 20:24 Dose: 325 mg Documented by: Atorvastatin Calcium (Atorvastatin Calcium 20 Mg Tablet) 20 mg PO QPM [facility] Last Admin: 09/25/20 17:00 Dose: 20 mg Documented by: Diltiazem HCl (Diltiazem Hcl 180 Mg Cap.Er.24h) 180 mg PO DAILY [facility] Last Admin: 09/26/20 09:13 Dose: 180 mg Documented by: Empagliflozin (Empagliflozin 10 Mg Tablet) 25 mg PO DAILY [facility] Last Admin: 09/26/20 09:14 Dose: 25 mg Documented by: Furosemide (Furosemide 20 Mg Tablet) 20 mg PO QDAC [facility] Last Admin: 09/26/20 05:56 Dose: 20 mg Documented by: Lisinopril (Lisinopril 5 Mg Tablet) 5 mg PO DAILY [facility] Last Admin: 09/26/20 09:14 Dose: 5 mg Documented by: Magnesium Oxide (Magnesium Oxide 400 Mg Tablet) 400 mg PO DAILY [facility] Last Admin: 09/26/20 09:13 Dose: 400 mg Documented by: Non-Formulary Medication (Insulin Regular Hum U-500 Conc [Humulin R U-500 (Conc) Kwikpen]) 80 unit SUBCUT BID BREAKFAST&LUNCH [facility] Last Admin: 09/26/20 11:29 Dose: 80 unit Documented by: Non-Formulary Medication (Insulin Regular Hum U-500 Conc [Humulin R U-500 (Conc) Kwikpen]) 70 unit SUBCUT 1700 [facility] Last Admin: 09/25/20 16:59 Dose: 70 unit Documented by: Pantoprazole Sodium (Pantoprazole Sodium 40 Mg Tablet.) 40 mg PO QDAC [facility] Last Admin: 09/26/20 05:56 Dose: 40 mg Documented by: Psyllium Hydrophilic Mucilloid (Psyllium Seed 6 Gm Packet) 1 packet PO QPM [facility] Last Admin: 09/25/20 17:00 Dose: 1 packet Documented by: Sennosides (Sennosides 8.6 Mg Tablet) 17.2 mg PO BEDTIME [facility] Last Admin: 09/25/20 20:23 Dose: 17.2 mg Documented by: Tamsulosin HCl (Tamsulosin Hcl 0.4 Mg Cap.Er.24h) 0.4 mg PO BEDTIME [facility] Last Admin: 09/25/20 20:24 Dose: 0.4 mg Documented by: Tramadol HCl (Tramadol Hcl 50 Mg Tablet) 50 mg PO BID [facility] Last Admin: 09/26/20 09:14 Dose: 50 mg Documented by: Ozempic 0.5 mg SQ WEEKLY [place] 3 Fatty Acids (Fish Oil) 1 capsul TID MultiVitamin 1 Daily Metformn 1000 mg BID Osteo Bi-Flex 2 tablets Daily Gabapentin 200 mg at Bedtime coQ10 400 mg every Daily Zyrtec 10 mg PO Daily ALLERGIES clindamycin Allergy (Verified 09/23/20 23:26) Swelling milk Adverse Reaction (Verified 09/23/20 23:26) Hives/THROAT SWELLING Penicillins Adverse Reaction (Verified 09/23/20 23:26) Swelling cottage cheese Allergy (Uncoded 09/23/20 23:26) Hives/THROAT SWELLING yogurt Allergy (Uncoded 09/23/20 23:26) Hives/THROAT SWELLING beer Adverse Reaction (Uncoded 09/23/20 23:26) THROAT SWELLING TOFU Adverse Reaction (Uncoded 09/23/20 23:26) Hives/SWELLING DISCONTINUED MEDICATIONS NAPROXEN SODIUM NEW PRESCRIPTIONS: FIORICET 1-2 TABLETS BID PRN PAIN SMOKING: NOT APPLICABLE DISEASE SPECIFIC EDUCATION: NEW MEDICATION RESTRICTION: NO DRIVING APPOINTMENT AND REFERRAL LAB REVIEW: 09/26/20 05:03 09/26/20 05:03 09/26/20 05:03: Sodium 134.5, Potassium 4.37, Chloride 101.8, Carbon Dioxide 23.4, Anion Gap 13.67, BUN 19.9, Creatinine 1.03, Estimated GFR (MDRD) 73.00, BUN/Creatinine Ratio 19.32, Glucose 134.6 H, Calcium 9.20, Total Bilirubin 0.45, AST 26.1, ALT 33.9, Alkaline Phosphatase 62.3, Total Protein 7.16, Albumin 4.40, Globulin 2.76, Albumin/Globulin Ratio 1.59 09/26/20 05:03: WBC 10.98 H, RBC 5.59, Hgb 15.3, Hct 46.0, MCV 82.3, MCH 27.4, MCHC 33.3, RDW Coeff of Chey 14.8, Plt Count 239, Immature Gran % (Auto) 0.4, Neut % (Auto) 80.1 H, Lymph % (Auto) 12.7, [place] % (Auto) 5.7, Eos % (Auto) 0.7, Baso % (Auto) 0.4, Neut # (Auto) 8.8 H, Lymph # (Auto) 1.4, [place] # (Auto) 0.6, Eos # (Auto) 0.1, Baso # (Auto) 0.0, Immature Gran # (Auto) 0.0 PLAN: DISCHARGE HOME DIET: FOLLOW YOUR USUAL DIET FOR DIABETES MANAGEMENT CHECK YOUR BLOOD SUGARS INSTRUCTED BY YOUR BELT MEASURER ACTIVITY: RESUME TOLERATED, BUT NO DRIVING UNTIL SEEN AND CLEARED BY NEUROLOGIST RESTRICTION: NO DRIVING UNTIL SEEN AND CLEARED BY NEUROLOGIST AN APPOINTMENT IS SCHEDULED FOR September AT 10:[address] GARCIA/AKIKO BALDWIN APRN/MIKEY PALOMO APRN AN APPOINTMENT IS SCHEDULED WITH DR. LAWTON AT THE [facility] GROUP IN [place] ON September AT 8 AM A REFERRAL HAS BEEN SENT TO [facility]. YOU WILL BE NOTIFIED BY THEM FOR AN APPOINTMENT PLEASE TAKE HOSPITAL CD WITH YOU TO THE APPOINTMENT CODE STATUS: FULL CODE MR. ARROYO IS ALERT AND ORIENTED X 4. HE LIVES AT HOME WITH HIS . MR. ARROYO IS AGREEABLE AND PLEASED WITH PLANS TO DISCHARGE HOME TODAY. HE IS INDEPENDENT WITH ACTIVITIES OF DAILY LIVING. HE REPORTS THE DOUBLE VISION SEEMS LESS WHEN COVERING THE RIGHT EYE. MEAL INTAKES ARE GOOD AT 100%. MR. ARROYO IS INDEPENDENT WITH BED MOBILITY AND ALL TRANSFERS. HE IS AMBULATORY IN THE ROOM AND TO THE BATHROOM. MR. ARROYO IS CONTINENT OF BOWEL AND BLADDER. HYDRATION STATUS IS GOOD. SKIN IS INTACT AND FREE OF DECUBITUS ULCERS. MEGAN GARCIA MD
--- NOTE | 2020-09-26 13:47 | DS ---
DATE OF SERVICE: 09/26/20 CODE STATUS: FULL CODE FINAL DIAGNOSIS: 1. DIPLOPIA 2, HEADACHE 3. DIABETES MELLITUS, TYPE 2 A1C 8.81(SEES DR. CLARK) 4. NEUROPATHY 5. HYPERTENSION 6. CKD 2 7. DYSLIPIDEMIA 8. GERD 9. CAD 10. BPH 11. HISTORY OF MRSA LEFT AXILLARY ABSCESS 12. MORBID OBESITY, BMI 42 13. METABOLIC SYNDROME 14. OBSTRUCTIVE SLEEP APNEA (C-PAP) 15. RIGHT FIFTH METATARSALTRANSVERSE FRACTURE 16. CABG, 2011 17. CARDIAC STENT, 2007 AND 2011 18. HERNIA REPAIR, CHILDHOOD LAST VITALS Temp Pulse Resp BP Pulse Ox 974 F H 79 20 127/80 93 L 09/26/20 10:00 09/26/20 10:00 09/26/20 10:00 09/26/20 10:00 09/26/20 10:00 DISCHARGE INSTRUCTIONS: 1. DISCHARGE HOME 2. RESTRICTION: NO DRIVING UNTIL SEEN AND CLEARED BY NEUROLOGIST 3. AN APPOINTMENT IS SCHEDULED FOR September AT 10:[address] GARCIA/AKIKO BALDWIN APRN/MIKEY PALOMO APRN 4. AN APPOINTMENT IS SCHEDULED WITH DR. LAWTON AT THE OPHTHAMOLOGY GROUP IN [place] ON September AT 8 AM 5. A REFERRAL HAS BEEN SENT TO [facility]. YOU WILL BE NOTIFIED BY THEM FOR AN APPOINTMENT PLEASE TAKE HOSPITAL CD WITH YOU TO THE APPOINTMENT 6. CHECK YOUR BLOOD SUGARS INSTRUCTED BY YOUR DELIVERY RECRUITER MEDICATIONS AT DISCHARGE: Acetaminophen (Acetaminophen 325 Mg Tablet) 650 mg PO BID [facility] Last Admin: 09/26/20 09:13 Dose: 650 mg Documented by: Acetaminophen/Butalbital/Caffeine (Butalb/Acetaminophen/Caffeine 50/325/40 Mg Tablet) 1 - 2 TABLETS BID PRN (NEW RX) PRN Reason: Mild Pain Last Admin: 09/26/20 05:57 Dose: 2 each Documented by: Aspirin (Aspirin 325 Mg Tablet.) 325 mg PO BEDTIME [facility] Last Admin: 09/25/20 20:24 Dose: 325 mg Documented by: Atorvastatin Calcium (Atorvastatin Calcium 20 Mg Tablet) 20 mg PO QPM [facility] Last Admin: 09/25/20 17:00 Dose: 20 mg Documented by: Diltiazem HCl (Diltiazem Hcl 180 Mg Cap.Er.24h) 180 mg PO DAILY [facility] Last Admin: 09/26/20 09:13 Dose: 180 mg Documented by: Empagliflozin (Empagliflozin 10 Mg Tablet) 25 mg PO DAILY [facility] Last Admin: 09/26/20 09:14 Dose: 25 mg Documented by: Furosemide (Furosemide 20 Mg Tablet) 20 mg PO QDAC [facility] Last Admin: 09/26/20 05:56 Dose: 20 mg Documented by: Lisinopril (Lisinopril 5 Mg Tablet) 5 mg PO DAILY [facility] Last Admin: 09/26/20 09:14 Dose: 5 mg Documented by: Magnesium Oxide (Magnesium Oxide 400 Mg Tablet) 400 mg PO DAILY [facility] Last Admin: 09/26/20 09:13 Dose: 400 mg Documented by: Non-Formulary Medication (Insulin Regular Hum U-500 Conc [Humulin R U-500 (Conc) Kwikpen]) 80 unit SUBCUT BID BREAKFAST&LUNCH [facility] Last Admin: 09/26/20 11:29 Dose: 80 unit Documented by: Non-Formulary Medication (Insulin Regular Hum U-500 Conc [Humulin R U-500 (Conc) Kwikpen]) 70 unit SUBCUT 1700 [facility] Last Admin: 09/25/20 16:59 Dose: 70 unit Documented by: Pantoprazole Sodium (Pantoprazole Sodium 40 Mg Tablet.Dr) 40 mg PO QDAC [facility] Last Admin: 09/26/20 05:56 Dose: 40 mg Documented by: Psyllium Hydrophilic Mucilloid (Psyllium Seed 6 Gm Packet) 1 packet PO QPM [facility] Last Admin: 09/25/20 17:00 Dose: 1 packet Documented by: Sennosides (Sennosides 8.6 Mg Tablet) 17.2 mg PO BEDTIME [facility] Last Admin: 09/25/20 20:23 Dose: 17.2 mg Documented by: Tamsulosin HCl (Tamsulosin Hcl 0.4 Mg Cap.Er.24h) 0.4 mg PO BEDTIME [facility] Last Admin: 09/25/20 20:24 Dose: 0.4 mg Documented by: Tramadol HCl (Tramadol Hcl 50 Mg Tablet) 50 mg PO BID [facility] Last Admin: 09/26/20 09:14 Dose: 50 mg Documented by: Ozempic 0.5 mg SQ WEEKLY [place] 3 Fatty Acids (Fish Oil) 1 capsul TID MultiVitamin 1 Daily Metformn 1000 mg BID Osteo Bi-Flex 2 tablets Daily Gabapentin 200 mg at Bedtime coQ10 400 mg every Daily Zyrtec 10 mg PO Daily NEW PRESCRIPTIONS: FIORICET 1-2 TABLETS BID PRN PAIN DISCONTINUED MEDICATIONS: NAPROXEN SODIUM DIET INSTRUCTIONS: FOLLOW YOUR USUAL DIET FOR DIABETES MANAGEMENT ACTIVITY: RESUME TOLERATED, BUT NO DRIVING UNTIL SEEN AND CLEARED BY NEUROLOGIST SMOKING: NOT APPLICABLE DISEASE SPECIFIC EDUCATION: NEW MEDICATION RESTRICTION: NO DRIVING APPOINTMENT AND REFERRAL HOSPITAL COURSE: This 59 year old /WHITE M was hospitalized 09/24/20 with diplopia. The patient had what looks like vertigo, diplopia of several days duration. His neurological status was completely normal throughout stay in the hospital. CT scan of the head with contrast and MRI with contrast of the brain all were practically normal. Carotid and vertebral scan normal. The patient had no cardiac arrhythmias noted thorughout the stay where he was monitored. He is going to have an echo done before discharge. The patient did not have any hypoglycemia. Neurological status as mentioned above has remained normal. Diplopia seems to be from diabetes mellitus of longstanding and other possibilities of migraine. The patient was started on Fioricet 1 to 2 tablets 3 to 4 times a day and that has helped headache and dioplopia. The patient is referred to an ophalmologist, Dr. Lawton on October 09, 2020. Also referred to [facility]. Referral pending appointment date. The patient is to receive a call. Records have been forwarded. The patient's BMI is 42. Strongly advised to lose weight. Referral to [facility]. The is usually aware of all his medications. The patient has poor knowlege of his medical conditions and medications. This has been the way ever since I have taken care of him. He is advised him not to drive until released by neurologist to do so. Condition stable. LAB REVIEW: 09/26/20 05:03: Sodium 134.5, Potassium 4.37, Chloride 101.8, Carbon Dioxide 23.4, Anion Gap 13.67, BUN 19.9, Creatinine 1.03, Estimated GFR (MDRD) 73.00, BUN/Creatinine Ratio 19.32, Glucose 134.6 H, Calcium 9.20, Total Bilirubin 0.45, AST 26.1, ALT 33.9, Alkaline Phosphatase 62.3, Total Protein 7.16, Albumin 4.40, Globulin 2.76, Albumin/Globulin Ratio 1.59 09/26/20 05:03: WBC 10.98 H, RBC 5.59, Hgb 15.3, Hct 46.0, MCV 82.3, MCH 27.4, MCHC 33.3, RDW Coeff of Chey 14.8, Plt Count 239, Immature Gran % (Auto) 0.4, Neut % (Auto) 80.1 H, Lymph % (Auto) 12.7, [place] % (Auto) 5.7, Eos % (Auto) 0.7, Baso % (Auto) 0.4, Neut # (Auto) 8.8 H, Lymph # (Auto) 1.4, [place] # (Auto) 0.6, Eos # (Auto) 0.1, Baso # (Auto) 0.0, Immature Gran # (Auto) 0.0 TIME SPENT: More than 60 minutes. PLAN: Plan and coordination of the patient's care discussed in the presence of Utility Clerk and nurse. SCRIBED BY: ROMAN LEVI Tabulating Machine Mechanic scribed while in presence of service performed by Dr. MEGAN GARCIA on 09/26/20 ([id number]) [facility]
--- NOTE | 2020-09-26 14:40 | PN ---
BILLING 09/24/20 ADMISSION DAY LEVEL 5 09/25/20 INTERMEDIATE 09/26/20 D IN DISCHARGE MTDD
== END 2020-09-26 13:50 | disposition home or self-care (01) ==
LOC: ED 21:30 → MEDSURG A 21:30
PROVIDERS: ADMIT Internal Medicine; ATTEND Internal Medicine
DX: R42 Dizziness and giddiness; G62.9 Polyneuropathy, unspecified; R51.9 Headache, unspecified; R20.0 Anesthesia of skin; E11.9 Type 2 diabetes mellitus without complications; E78.5 Hyperlipidemia, unspecified; E66.01 Morbid (severe) obesity due to excess calories; N18.2 Chronic kidney disease, stage 2 (mild); K21.9 Gastro-esophageal reflux disease without esophagitis; E88.81 Metabolic syndrome and other insulin resistance; H53.2 Diplopia; I25.10 Atherosclerotic heart disease of native coronary artery without angina pectoris; I10 Essential (primary) hypertension; M19.90 Unspecified osteoarthritis, unspecified site